=== PATIENT | female | born 1990 | race Caucasian/White ===

== ENCOUNTER 2017-09-22 23:47 | Emergency (ER) | payer OTHER ==
[~2017-09-22] VITALS: Ht 160 cm; Wt 64.2 kg
[~2017-09-22 23:47] MED LIST: PRENTAB26 PO
[2017-09-22 23:51] VITALS: TEMP 36.9; Ht 160 cm; Wt 64.2 kg
[2017-09-23] MEDS ORDERED: LORAZEPAM 1 MG TAB SL STA (00:29)
[2017-09-23 00:47] LABS: HEMATOCRIT 37.9 % (37-47); MEAN CELL VOLUME 85.9 fL (80-100); MEAN CORPUSCULAR HEMOGLOBIN 30.4 pg (25-34); MEAN CORPUSCULAR HGB CONC 35.4 g/dl (32-36); MEAN PLATELET VOLUME 9.2 fL (7.4-10.4); PLATELET COUNT 305 K/uL (130-400); RED BLOOD COUNT 4.41 M/uL (4.2-5.4); WHITE BLOOD COUNT 7.53 K/uL (4.8-10.8)
[2017-09-23] MEDS ORDERED: MELA1TAB9 PO (01:02)
[2017-09-23] MEDS ORDERED: SERT-234 PO (01:02)
[2017-09-23 01:09] LABS: BUN/CREATININE RATIO 23.1 (10-20); CALCIUM 9.1 mg/dl (8.5-10.1); CREATININE 0.62 mg/dl (0.60-1.20)
[2017-09-23 01:19] LABS: ALB/GLOB RATIO 1.2 (0.9-2); THYROID STIMULATING HORMONE 1.65 uIu/ml (0.300-4.500)
[2017-09-23 02:45] VITALS: BP 119/62; PULSE 80; O2SAT 98
--- NOTE | 2017-09-23 07:45 | EMERGENCY ROOM VISIT NOTE ---
History Report prepared by Yohana: Fern Lu Under the Supervision of: Dr. Ivon Jimenez D.O. First contact with patient: 00:00 Chief Complaint: ANXIETY Stated Complaint: PANICK ATTACK,STOMACH PAIN, CHEST PAIN History of Present Illness The patient is a 27 year old female who presents to the Emergency Room with complaints of intermittent anxiety starting an hour ago. The patient states that she was visiting her biological family in [place] and was driving home to [place]. She states that she was planning to stop in the area because her mother in law lives here. She reports that while driving, she saw a shooting star or comet. She reports that she has a phobia of anything associated with outer space and immediately started having the worst panic attack she has ever had. She reports that she called her mother in law and then her . She states while on the phone with her she felt like she was going to pass out. The patient states that she "felt like everything was going black" so she pulled over. She reports that she became dizzy, spaced out, had chest pain, shortness of breath, palpitations, and "muscle twinges" in her head. She states that when she has these "twinges" she feels like she has a brain aneurysm and has to talk herself out of it. She states that she got to her mother in laws and took a 0.5 Lorazepam. She states that she normally takes Zoloft, but forgot to take it tonight. She states that she used to be on Klonopin and it gave her headaches so she has not taken it in months. The patient complains of currently feeling "like she is floating above everything" and feeling nauseous. She notes that she still feels a little anxious. The patient denies abdominal pain, thoughts of hurting herself, thoughts of hurting others, substance abuse, and substance abuse. She notes that she normally sees a psychiatrist, but hasn't in months due to the cost of them. She denies ever seeing a therapist. She notes her LNMP is currently occurring. She notes that she had a little anxiety in [place], but "mind over mattered it." Source of History: patient Onset: an hour ago Position: other (global) Quality: other (global) Timing: intermittent Modifying Factors (Relieving): other (Lorazepam ) Associated Symptoms: + chest pain, + SOB, + nausea, No abdominal pain Note: The patient complains of having dizziness, feeling spaced out, palpitations, "muscle twinges." The patient complains of currently feeling "like she is floating above everything." The patient denies thoughts of hurting herself, thoughts of hurting others, substance abuse, and substance abuse. Review of Systems See HPI for pertinent positives & negatives. A total of 10 systems reviewed and were otherwise negative. Past Medical & Surgical Medical Problems: (1) Hx of anxiety disorder Family History Patient reports no known family medical history. Social History Smoking Status: Light Tobacco Smoker Alcohol Use: occasionally Drug Use: none Marital Status: Housing Status: lives with family Occupation Status: employed Current/Historical Medications Scheduled Melatonin-Pyridoxine (Melatonin), 6 MG PO HS Sertraline (Zoloft), 100 MG PO HS Allergies Coded Allergies: Diphenhydramine (Verified Allergy, Severe, PANIC ATTACK, 09/23/17) [place] (Verified Allergy, Unknown, ., 09/23/17) Horse Dander (Verified Allergy, Unknown, ., 09/23/17) Physical Exam Vital Signs Date Time Temp Pulse Resp B/P (MAP) Pulse Ox O2 Delivery O2 Flow Rate FiO2 09/23/17 02:45 80 20 119/62 98 09/23/17 02:35 80 20 119/62 98 Room Air 09/22/17 23:51 36.9 114 18 119/82 99 Room Air Physical Exam General: Appears slightly anxious. HEENT: Head - normocephalic and atraumatic Pupils are equal, round, and reactive to light. Extraocular eye muscles are intact, and sclera are anicteric. Nose - moist nasal mucosa without discharge. Mouth - moist buccal mucosa. Oropharynx is nonerythematous and there is no tonsillar exudate or edema noted. Neck: Supple; no JVD, nuchal rigidity, cervical lymphadenopathy. Heart: Regular rate and rhythm. There is a normal S1 and S2 with no murmurs, clicks, or gallops appreciated. Lungs: Clear to auscultation bilaterally with no wheezes, rales, or rhonchi. Abdomen: Soft, completely nontender, nondistended, with good bowel sounds. There are no palpable pulsatile masses or hepatosplenomegaly. There is no guarding, rigidity, or rebound noted. Extremities: No evidence of cyanosis, clubbing, or edema. There are easily palpable peripheral pulses. Skin: warm and dry with good turgor and no rashes. Psych: Anxious, hyperverbal, no suicidal or homicidal ideations. Medical Decision & Procedures Laboratory Results 09/23/17 00:33 09/23/17 00:33 Test 09/23/17 00:33 Red Blood Count 4.41 M/uL (4.2-5.4) Mean Corpuscular Volume 85.9 fL (80-100) Mean Corpuscular Hemoglobin 30.4 pg (25-34) Mean Corpuscular Hemoglobin Concent 35.4 g/dl (32-36) RDW Standard Deviation 39.8 fL (36.4-46.3) RDW Coefficient of Variation 12.7 % (11.5-14.5) Mean Platelet Volume 9.2 fL (7.4-10.4) Anion Gap 7.0 mmol/L (3-11) Est Creatinine Clear Calc Drug Dose 120.7 ml/min Estimated GFR () 141.2 Estimated GFR (Non- 121.9 BUN/Creatinine Ratio 23.1 (10-20) Calcium Level 9.1 mg/dl (8.5-10.1) Total Bilirubin 0.4 mg/dl (0.2-1) Aspartate Amino Transf (AST/SGOT) 12 U/L (15-37) Alanine Aminotransferase (ALT/SGPT) 25 U/L (12-78) Alkaline Phosphatase 56 U/L (45-117) Total Protein 8.2 gm/dl (6.4-8.2) Albumin 4.4 gm/dl (3.4-5.0) Globulin 3.8 gm/dl (2.5-4.0) Albumin/Globulin Ratio 1.2 (0.9-2) Thyroid Stimulating Hormone (TSH) 1.650 uIu/ml (0.300-4.500) Laboratory results per my review. Medications Administered Medications (Trade) Dose Ordered Sig/Cortes Route Start Time Stop Time Status Last Admin Dose Admin Lorazepam (Ativan Tab) 1 mg NOW STAT SL 09/23/17 00:29 09/23/17 00:39 DC 09/23/17 00:50 1 MG Procedure 0029: Ordered Ativan Tab 1 mg SL. ED Course 0011: Past medical records reviewed. The patient was evaluated in room A8. A complete history and physical exam was performed. Labs are drawn as above. 0029: Ordered Ativan Tab 1 mg SL. 0230: Upon reevaluation, the patient was sound asleep. I woke her up and she states that she feels much better. I discussed findings and results with her. She verbalized agreement of the treatment plan. The patient was discharged home. Medical Decision This is a 27-year-old female patient who presents to the emergency department with a panic attack. Differential diagnoses include anxiety attack, mood disorder, thought disorder. LABS: Normal white count Normal H&H Normal TSH Glucose 105 Normal renal function Normal LFTs The patient does have a history of anxiety. She previously been taking Klonopin. She had a significant episode of anxiety tonight which she could not get to subside. After receiving the oral Ativan here in the emergency department, the patient's symptoms went away. Medication Reconcilliation Current Medication List: was personally reviewed by me Blood Pressure Screening Patient's blood pressure: Normal blood pressure Blood pressure disposition: Did not require urgent referral Impression Primary Impression: Acute anxiety Scribe Attestation The scribe's documentation has been prepared under my direction and personally reviewed by me in its entirety. I confirm that the note above accurately reflects all work, treatment, procedures, and medical decision making performed by me. Departure Information Dispostion Home / Self-Care Referrals No Doctor, Assigned (PCP) Forms HOME CARE DOCUMENTATION FORM, IMPORTANT VISIT INFORMATION Patient Instructions My [facility] Additional Instructions Rest. Limit stress and anxiety as much as possible. Follow up with your psychiatrist when you return to [place]
== END 2017-09-23 02:45 | disposition home or self-care (01) ==
LOC: C.EDB 23:48 → C.EDA 09-23 02:45
DX: F41.9 Anxiety disorder, unspecified (principal); F17.210 Nicotine dependence, cigarettes, uncomplicated; Z79.899 Other long term (current) drug therapy